=== PATIENT | female | born 1960 | race Caucasian/White ===

== ENCOUNTER → 2018-04-10 | Outpatient (CLI) | payer OTHER | LOC: M.RAD 12:01 | DX: Z12.31 Encounter for screening mammogram for malignant neoplasm of breast (principal) ==

== ENCOUNTER 2018-11-27 09:08 | Emergency (ER) | payer OTHER ==
[~2018-11-27] VITALS: Ht 162.6 cm; Wt 72.6 kg
[2018-11-27] MEDS ORDERED: PREMARIN0.45 MG PO (09:21)
[2018-11-27 09:47] VITALS: BP 139/99
== END 2018-11-27 09:51 | disposition left against medical advice (07) ==
LOC: M.ERS 09:08
DX: Z53.21 Procedure and treatment not carried out due to patient leaving prior to being seen by health care provider (principal)